=== PATIENT | female | born 1960 | race Caucasian/White ===

== ENCOUNTER 2016-10-15 17:25 | Inpatient (IN) | payer OTHER ==
[~2016-10-15] VITALS: Ht 157.5 cm; Wt 77.8 kg
[~2016-10-15 17:25] MED LIST: BUTALB-APAP-CA1 EACH PO; FLUOXETINE HCL20 MG PO; LEVO-T75 MCG PO; MEDROL DOSEPAK4 MG PO; PATADAY2.5 ML BOTH EYES; PERCOCET 5/31 TABLET PO; PROTONIX40 MG PO; PROZAC20 MG PO; PROZAC40 MG PO; TOPIRAMATE25 MG PO; TRAMADOL HCL50 MG PO; VALIUM2 MG PO; ZOFRAN ODT4 MG PO
[2016-10-15 19:03] LABS: HEMATOCRIT 45.5 % (36.0-46.0); MCH 31.6 PG (29.0-34.0); MCHC 34.7 G/DL (30.0-36.0); MEAN PLAT.VOLUME 10.4 uM^3 (9.5-12.4); PLATELET COUNT 154 K/uL (156-360); RBC DIS.WIDTH-CV 12.4 % (11.8-14.6); RBC DIS.WIDTH-SD 41.1 % (39-53); WHITE BLOOD COUNT 15.7 K/uL (4.1-10.2)
[2016-10-15 19:11] LABS: CHLORIDE 97 mEq/L (99-109); SODIUM 129 mEq/L (136-147)
[2016-10-15 19:14] LABS: GLUCOSE 110 mg/dL (70-99)
[2016-10-15 19:15] LABS: ANION GAP 19 MEQ/L (2-14)
[2016-10-15 19:16] LABS: TOTAL BILIRUBIN 0.6 mg/dL (0.0-1.0)
[2016-10-15 19:17] LABS: ALKALINE PHOSPHATASE 97 IU/L (3-129); GFR ESTIMATE (CALCULATED) > 59 mL/min/
[2016-10-15 19:18] LABS: UREA NITROGEN (BUN) 13 mg/dL (9-23)
[2016-10-15 19:35] LABS: ADD MIUA? YES; BILIRUBIN NEGATIVE; BLOOD MODERATE; GLUCOSE (STRIP) NEGATIVE; KETONES NEGATIVE; LEUKOCYTES NEGATIVE; NITRITE NEGATIVE; PROTEIN (STRIP) 100; UROBILINOGEN 0.2 MG/DL (0.2-1.0)
[2016-10-15 19:51] LABS: BACTERIA RARE /HPF; COLOR AMBER ((YELLOW)); EPITHELIAL CELLS RARE /HPF; MUCUS 1+ /LPF; RED BLOOD CELLS 20-30 /HPF (0-5); UCUL ADDED? NO; WHITE BLOOD CELLS 0-5 /HPF (0-5)
[2016-10-16 02:17] VITALS: BP 93/42
[2016-10-16 04:01] VITALS: BP 102/54
[2016-10-16 06:38] LABS: TROP-I INTERPRETATION NEGATIVE; TROPONIN-I 0.01 ng/mL (0.0-0.30)
[2016-10-16 08:15] VITALS: BP 110/54
[2016-10-16 09:18] LABS: ANION GAP 7 MEQ/L (2-14); CHLORIDE 106 MEQ/L (99-109); POTASSIUM 4.1 MEQ/L (3.7-5.4); SAMPLE HEMOLYSIS CHECK 0; SAMPLE ICTERIC CHECK 0; SAMPLE LIPEMIA CHECK 0
[2016-10-16 09:23] LABS: GFR ESTIMATE (CALCULATED) > 59 mL/min/; GLUCOSE 91 mg/dL (70-99); UREA NITROGEN (BUN) 15 mg/dL (9-23)
[2016-10-16 09:31] LABS: SODIUM 136 MEQ/L (136-147)
[2016-10-16 09:39] LABS: HEMATOCRIT 40.4 % (36.0-46.0); MCH 31.1 PG (29.0-34.0); MCHC 32.9 G/DL (30.0-36.0); MCV 94.6 FL (83-99); MEAN PLAT.VOLUME 10.1 uM^3 (9.5-12.4); PLATELET COUNT 118 K/uL (156-360); RBC DIS.WIDTH-CV 12.7 % (11.8-14.6); RED BLOOD COUNT 4.27 M/uL (3.80-5.20); WHITE BLOOD COUNT 10.1 K/uL (4.1-10.2)
[2016-10-16 11:33] VITALS: BP 137/62
[2016-10-16 13:27] LABS: LIPASE 13 U/L (1.0-51.0)
[2016-10-16 15:57] VITALS: BP 116/52
[2016-10-16 19:19] VITALS: BP 117/57
[2016-10-17 00:07] VITALS: BP 108/53
[2016-10-17 05:34] LABS: TROP-I INTERPRETATION NEGATIVE; TROPONIN-I 0.01 ng/mL (0.0-0.30)
[2016-10-17 07:09] LABS: HEMATOCRIT 36.1 % (36.0-46.0); MCH 30.7 PG (29.0-34.0); MEAN PLAT.VOLUME 10.6 uM^3 (9.5-12.4); PLATELET COUNT 130 K/uL (156-360); RBC DIS.WIDTH-CV 12.3 % (11.8-14.6); RBC DIS.WIDTH-SD 42.4 % (39-53); RED BLOOD COUNT 3.88 M/uL (3.80-5.20); WHITE BLOOD COUNT 6.3 K/uL (4.1-10.2)
[2016-10-17 07:31] VITALS: BP 103/58
[2016-10-17 07:38] LABS: ANION GAP 8 MEQ/L (2-14); CHLORIDE 105 MEQ/L (99-109); GFR ESTIMATE (CALCULATED) > 59 mL/min/; GLUCOSE 73 mg/dL (70-99); POTASSIUM 3.9 MEQ/L (3.7-5.4); SAMPLE HEMOLYSIS CHECK 0; SAMPLE ICTERIC CHECK 0; SAMPLE LIPEMIA CHECK 0; SODIUM 139 MEQ/L (136-147); UREA NITROGEN (BUN) 9 mg/dL (9-23)
[2016-10-17] MEDS ORDERED: CEFDINIR300 MG PO (14:36)
[2016-10-17] MEDS ORDERED: MAG-AL PLUS SUS30 ML PO (14:36)
[2016-10-17] MEDS ORDERED: TRAMADOL HCL50 MG PO (14:36)
[2016-10-17 17:18] VITALS: BP 103/58
== END 2016-10-17 18:10 | disposition home or self-care (01) | DRG 871 ==
LOC: EME 17:25 → 3EAST 23:43 → EDOF 23:43 → ENRESERV 23:44 → 3EAST 10-16 01:55
PROVIDERS: Hospitalist; Internal Medicine
DX: A41.9 Sepsis, unspecified organism (principal); J15.9 Unspecified bacterial pneumonia; I95.9 Hypotension, unspecified; E87.1 Hypo-osmolality and hyponatremia; G43.909 Migraine, unspecified, not intractable, without status migrainosus; E03.9 Hypothyroidism, unspecified; R10.12 Left upper quadrant pain; R10.13 Epigastric pain; F17.200 Nicotine dependence, unspecified, uncomplicated; F32.9 Major depressive disorder, single episode, unspecified; Z80.3 Family history of malignant neoplasm of breast; Z83.3 Family history of diabetes mellitus
CPT/HCPCS: 71275; 74174; 80048; 80053; 81003; 83605; 83690; 84443; 84484; 85027; 87040; 93005; 99281; 99285; J0456; J0696; J1644; J1885; J3010; J7030; J7040; J7050; S0028